=== PATIENT | female | born 1990 | race Caucasian/White ===

== ENCOUNTER 2022-11-09 15:52 | Emergency (ER) | payer OTHER ==
[~2022-11-09] VITALS: Ht 160 cm; Wt 57.6 kg
[2022-11-09 15:55] VITALS: BP 139/74
--- NOTE | 2022-11-09 15:58 | NUR ---
PT [facility] BLS TO LOBBY. PT AMBULATED TO CHAIR IN LOBBY
[2022-11-09] MEDS ORDERED: NACL 0.9% 1,000 ML IV ONE (16:10)
[2022-11-09] MEDS ORDERED: LORazepam 1 MG TAB PO ONE (16:10)
--- NOTE | 2022-11-09 16:47 | NUR ---
Pt bib ems for anxiety and a fast heart rate after consuming an edible. Pt states she consumed half of an edible. Pt is a/o x 4, vss (with note to hr), speech clear, no ss of acute distress, labs labeled and handed to [facility] at bedside. Pt on monitor. Pt to xray.
[2022-11-09 16:55] LABS: BASOPHILS % (AUTO) 0.5 % (0.0-2.0); EOSINOPHILS # (AUTO) 0.1 K/uL (0-0.4); HEMATOCRIT 37.4 % (36-48); HEMOGLOBIN 12.8 g/dL (12.0-16.0); LYMPHOCYTES # (AUTO) 2.3 K/uL (2.5-16.5); LYMPHOCYTES % (AUTO) 32.2 % (20.5-51.1); MEAN CORPUSCULAR HEMOGLOBIN 30 pg (27-31); MEAN CORPUSCULAR HGB CONC 34 g/dL (33-37); MEAN CORPUSCULAR VOLUME 86.7 fL (80-94); MONOCYTES # (AUTO) 0.4 K/uL (0.8-1.0); MONOCYTES % (AUTO) 6.2 % (1.7-9.3); NEUTROPHILS # (AUTO) 4.3 K/uL (1.8-7.7); NEUTROPHILS % (AUTO) 60.1 % (42.2-75.2); PLATELET COUNT (AUTO) 287 K/uL (140-450); RED BLOOD CELL COUNT(AUTO) 4.31 MIL/uL (4.20-5.40); WHITE BLOOD COUNT (AUTO) 7.1 K/uL (4.8-10.8)
[2022-11-09 17:45] LABS: ANION GAP 15.9 (8-16); CARBON DIOXIDE 24.8 mmol/L (21-32); CREATININE 0.6 mg/dL (0.6-1.3); TOTAL BILIRUBIN 1.5 mg/dL (0.0-1.0)
[2022-11-09 17:47] LABS: POTASSIUM 2.7 mmol/L (3.5-5.1)
[2022-11-09] MEDS ORDERED: POTASSIUM CHLORIDE 20% 40 MEQ/15 ML UDC PO ONE (17:50)
--- NOTE | 2022-11-09 19:12 | NUR ---
ACI given and reviewed with pt. Pt verbalized understanding and will follow up with primary. Pt a/o x 4, vss (with note to hr, aware), no ss of acute distress, breathing equal and unlabored, steady gait witnessed. IV removed and inspected for patency. Pt left with partner.
--- NOTE | 2022-11-15 09:12 | NUR ---
LATE ENTRY -- CONFIRMED WITH NURSE NS INFUSION COMPLETED AT 6032 11/09/22
== END 2022-11-09 19:12 | disposition home or self-care (01) ==
LOC: MED 15:52
DX: F41.9 Anxiety disorder, unspecified (principal)
CPT/HCPCS: 36415; 71045; 80053; 81025; 83880; 84484; 85025; 93005; 96360; 99285; J7030